=== PATIENT | male | born 2000 | race Caucasian/White ===

== ENCOUNTER 2020-05-13 10:49 | Emergency (ER) | payer BC ==
[~2020-05-13] VITALS: Ht 193 cm; Wt 106.6 kg
[2020-05-13 11:02] VITALS: BP 132/71
--- NOTE | 2020-05-13 11:10 | NUR ---
20/M BIB SELF C/O FEVER, COUGH,DONATO, BODY ACHE,LOSS OF TASTE/SMELL X 3 DAYS. TOOK TYLENOL 45 MINS AGO. MOTHER HAD COVID TESTED +. MED HX: DENIES. DENIES N/V/D; SKIN IS PINK/WARM/DRY; AAOX4 WITH EVEN AND STEADY GAIT; LUNGS CLEAR BL; HR EVEN AND REGULAR; PT DENIES ANY FEVER, CP OR SOB AT THIS TIME; PATIENT STATES PAIN OF 7/10 AT THIS TIME.
--- NOTE | 2020-05-13 11:22 | NUR ---
COVID SWAB DONE. SENT TO LAB.
[2020-05-13 11:23] VITALS: BP 132/71
--- NOTE | 2020-05-13 11:23 | NUR ---
Patient discharged with v/s stable. Written and verbal after care instructions given and explained. Patient alert, oriented and verbalized understanding of instructions. Ambulatory with steady gait. All questions addressed prior to discharge. ID band removed. Patient advised to follow up with PMD. Rx of NAPROSYN & ACETAMINOPHEN given. Patient educated on indication of medication including possible reaction and side effects. Opportunity to ask questions provided and answered.
== END 2020-05-13 11:23 | disposition home or self-care (01) ==
LOC: MED 10:49
DX: J06.9 Acute upper respiratory infection, unspecified (principal); Z20.828 Contact with and (suspected) exposure to other viral communicable diseases
CPT/HCPCS: 99283; U0003